=== PATIENT | female | born 2005 | race Caucasian/White ===

== ENCOUNTER 2024-12-12 21:34 | Emergency (ER) | payer BC, SELFPAY ==
[2024-12-12 21:35] VITALS: BP 124/78
[2024-12-12] MEDS: GLYCERIN SUPPOSITORY ADULT 1 SUPP RECTAL (22:47)
--- NOTE | 2024-12-12 22:47 | ED.GENMED ---
History of Present Illness
General
Chief Complaint: Bowel Problem
Source: patient and family (Mother who is present at the bedside)
Time Seen by Provider: 12/12/24 22:16
History of Present Illness
History of Present Illness:
Pleasant 19-year-old female presents to the emergency department with constipation. She states that she has not had a bowel movement for the last 9 days. She did try taking mag citrate at home with minimal to no relief of her symptoms. Denies
fever, chills, nausea or vomiting. Reports no chest pain or shortness of breath.
Review of Systems
Review of Systems
Allergies reviewed?: Yes
Other source history: family
All Other Systems: ROS reviewed and negative except as documented in HPI and ROS
Constitutional: Reports no symptoms; Denies fever or chills
EENT: Reports no symptoms
Respiratory: Reports no symptoms
Cardiac: Reports no symptoms
ABD/GI: Reports abdominal pain and constipated
: Reports no symptoms
Musculoskeletal: Reports no symptoms
Skin: Reports no symptoms
Neurological: Reports no symptoms
Endocrine: Reports no symptoms
Hematologic/Lymphatic: Reports no symptoms
Psychiatric: Reports anxiety
Phy Exam
General Physical Exam
General Presentation: well appearing and no apparent distress
General Skin: warm and dry
General Habitus: normal
General Mental: alert
General Hydration: appears well hydrated
ENT Exam
ENT Exam: EOMI, pharynx normal, neck supple and normocephalic
Eye Exam
Eye Exam: PERRL, cornea clear and conjunctiva normal
Cardiovascular Exam
Cardiovascular Exam: regular rate/rhythm, no edema, no murmur and normal peripheral pulses
Pulmonary Exam
Pulmonary Exam: lungs clear, no respiratory distress, no rales, no crackles, no rhonchi, no stridor, no wheezing and no cough
Gastrointestinal Exam
Gastrointestinal Exam: normal bowel sounds, soft and non distended
Palpation: generalized: Minimal tenderness
Neurological Exam
Neurological Exam: alert, oriented x3, no motor deficits and speech normal
Musculoskeletal Exam
Musculoskeletal Exam: full ROM and no edema
Skin Exam
Skin Exam: normal color, warm/dry, no rash and no petechia
Psychiatric Exam
Psychiatric Exam: normal mood/affect
Course
Orders/Labs/Results
Orders:
Orders
12/12/24 22:17
CR Abdomen - 1 View Urgent
Comment:
Reason For Exam: abdominal pain, constipation
12/12/24 22:44
Glycerin [Glycerin Suppository Adult] 1 supp RECTAL NOW STA
12/12/24 22:47
Enema- Treatment ONCE
Type: Milk of Molasses
12/12/24 22:49
Test Result ONCE
12/13/24 00:21
Enema- Treatment ONCE
Type: Mineral Oil
12/13/24 00:42
Mineral Oil Enema [Fleet Mineral Oil Enema] 133 ml .ROUTE .STK-MED ONE
Mineral Oil Enema [Fleet Mineral Oil Enema] 133 ml RECTAL NOW STA
Vital Signs
Initial and Last Documented VS:
Initial Vital Signs
Temp Pulse Resp BP Pulse Ox
98.4 F 89 20 124/78 99
12/12/24 21:35 12/12/24 21:35 12/12/24 21:35 12/12/24 21:35 12/12/24 21:35
Last Documented Vital Signs
Temp Pulse Resp BP Pulse Ox
98.4 F 70 16 110/58 99
12/12/24 21:35 12/13/24 02:57 12/13/24 02:57 12/13/24 02:57 12/13/24 02:57
*Critical Care Note
Total Time (30-74mins, 75-104mins- exclusive of procedures): Not Applicable
ED Attending Note
-
Portions of this chart may have been created with voice recognition software.� Occasional wrong word or��sound alike� substitutions may have occurred due to the inherent limitations of voice recognition software.
Discharge Plan
Departure
Patient Disposition: Home (Routine Discharge)
Date of Disposition: 12/13/24
Time of Disposition: 02:30
Patient with high blood pressure during this ER visit?: Yes
Condition: Good
Discharge Problem:
Constipation, Abdominal pain
Instructions: Constipation, Adult (DC), Abdominal Pain
Prescriptions:
New
polyethylene glycol 3350 [ClearLax] 17 gram/dose powder
4 g PO BID 5 Days Qty: 40 0RF
Referrals:
Malu Lawrence MD [Active] - Call in 1-3 days for appt
NONE,* [Family Provider] -
Activity Restrictions/Additional Instructions:
Please take the MiraLAX twice a day for 5 days.
Thank You for choosing [facility].
It was a pleasure meeting you and taking part in your care. We hope for your continued healing and wellness.
Please read discharge instructions in their entirety. However, they are for general education and may not describe your exact diagnosis at discharge. Information on your ER visit and medical conditions were discussed with you along with appropriate
follow up information...
If indicated, please take your medications as instructed and indicated on discharge paperwork.
Please schedule a follow up appointment as directed. Call to schedule an appointment
Please return to the emergency department with ANY change in, persisting, or worsening of symptoms. If any of your symptoms do not improve, or persist, or become more severe within 6-12 hours, please return to the emergency department for further
care.
Please return to the emergency department if you develop a headache, neck pain/stiffness, fever greater than 100.4F, chest pain, shortness of breath, persistent nausea, vomiting, slurred speech, difficulty walking, numbness/tingling, weakness, signs
of infection or any other symptoms that are worrisome to you.
If you have any questions or concerns please do not hesitate to call the Hospital at or E-mail me directly at [email or web address]
Interventions
Interventions:
*Risk Screen - Suicide Last Done: 12/12/24 21:35
*General Assessment Last Done: 12/12/24 21:35
*Neglect/Abuse Screening Last Done: 12/12/24 21:35
*ED- Fall Risk Assessment Last Done: 12/13/24 00:47
*ED COVID-19 Vaccine History Last Done: 12/13/24 00:47
*Nursing Disposition Last Done: 12/13/24 02:57
NH-Lbeqjz-Rskxlgbsgf Assessment Last Done: 12/12/24 22:26
Discharge Date and Time
Discharge Date/Time: 12/13/24 02:59
Print Language: [id number]
[2024-12-13] MEDS: FLEET MINERAL OIL ENEMA 133 ML RECTAL (00:43)
[2024-12-13 01:00] VITALS: BMI 23.7
[2024-12-13 01:34] VITALS: BP 106/53
[2024-12-13 02:57] VITALS: BP 110/58
== END 2024-12-13 02:59 | disposition home or self-care (01) ==
LOC: EMR 21:34
PROVIDERS: EMERGENCY PHYSICIAN Student in an Organized Health Care Education/Training Program
DX: K59.00 Constipation, unspecified (principal); R10.9 Unspecified abdominal pain; R03.0 Elevated blood-pressure reading, without diagnosis of hypertension
CPT/HCPCS: 99283; 74018